=== PATIENT | female | born 1995 | race Two or more races ===

== ENCOUNTER 2018-05-13 17:13 | Emergency (ER) | payer OTHER ==
[~2018-05-13] VITALS: Ht 165.1 cm; Wt 69.0 kg
[2018-05-13 17:36] VITALS: BP 113/77
--- NOTE | 2018-05-13 18:32 | NUR ---
TASK RN: Patient/Caregiver given discharge instructions and they have confirmed that they understand the instructions. Patient ambulatory with steady gait.
== END 2018-05-13 18:38 | disposition home or self-care (01) ==
LOC: ED 18:30
DX: H66.002 Acute suppurative otitis media without spontaneous rupture of ear drum, left ear (principal)
CPT/HCPCS: 99283